=== PATIENT | female | born 1945 | race Caucasian/White ===

== ENCOUNTER 2016-09-28 11:06 | Inpatient (IN) | payer MEDICARE, OTHER ==
[~2016-09-28] VITALS: Ht 162.6 cm; Wt 67.3 kg
[~2016-09-28 11:06] MED LIST: ACID CONTROLLER20 MG PO; AMITIZA24 MCG PO; CLARITIN10 M2 PO; DIAMOX 250 MG250 MG PO; DIGITEK250 MCG PO; DILTIAZEM 24HR120 MG PO; ELIQUIS5 MG PO; IPRAT-ALBUT 0.5-3 ML INH; IRON325 MG PO; KLOR-CON 1010 MEQ PO; LASIX TAB 20 MG20 MG PO; LEVEMIR FL100 UNIT/1 SQ; MIRALAX PACK 171 PKT PO; NEURONTIN 300300 MG PO; NOVOLOG 10100 UNITS2 INJ; NYAMYC60 GM TP; PRAVASTATIN SOD20 MG PO; SOTALOL80 MG PO; SYNTHROID100 MCG PO; ZANTAC300 MG PO; ZYVOX600 MG PO
[2016-09-28 11:58] LABS: HEMOGLOBIN 9.1 gm/dl (12.3-15.3); RED BLOOD COUNT 3.53 M/UL (4.00-5.10); WHITE BLOOD COUNT 14.2 K/UL (4.5-11.0)
[2016-09-28] MEDS ORDERED: HYDROCHLOROTHIA25 MG PO (18:31)
[2016-09-28] MEDS ORDERED: LORTAB 7.5-3251 EACH PO (18:32)
[2016-09-28] MEDS ORDERED: SINGULAIR10 MG PO (18:33)
[2016-09-28] MEDS ORDERED: DULCOLAX STOOL100 MG PO (18:35)
[2016-09-29 04:23] LABS: HEMOGLOBIN 8.5 gm/dl (12.3-15.3); RED BLOOD COUNT 3.42 M/UL (4.00-5.10)
[2016-09-30 04:51] LABS: HEMOGLOBIN 8.4 gm/dl (12.3-15.3); RED BLOOD COUNT 3.37 M/UL (4.00-5.10)
[2016-09-30 04:52] LABS: WHITE BLOOD COUNT 13.2 K/UL (4.5-11.0)
[2016-09-30 05:09] LABS: BUN/CREATININE RATIO 29 (0-10)
[2016-10-01 04:09] LABS: BUN/CREATININE RATIO 23 (0-10)
[2016-10-02 04:00] LABS: HEMOGLOBIN 8.2 gm/dl (12.3-15.3); RED BLOOD COUNT 3.22 M/UL (4.00-5.10)
[2016-10-02 04:03] LABS: WHITE BLOOD COUNT 9.2 K/UL (4.5-11.0)
[2016-10-02 04:17] LABS: BUN/CREATININE RATIO 20 (0-10)
[2016-10-02] MEDS ORDERED: COMBIVENT0.074 GM/I INH (11:48)
[2016-10-02] MEDS ORDERED: HUMIBID LA TAB600 MG PO (11:50)
[2016-10-02] MEDS ORDERED: ROBITUSSIN DM473 ML PO (12:20)
[2016-10-02] MEDS ORDERED: VENTOLIN/PROVE0.5 ML INH (12:20)
[2016-10-02] MEDS ORDERED: ZYVOX 600 MG T600 MG PO (12:22)
[2016-10-02] MEDS ORDERED: IPRAT-ALBUT 0.5-3 ML INH (12:25)
[2016-10-02] MEDS ORDERED: BACTRIM DS TAB1 EACH PO (16:05)
--- NOTE | 2016-10-02 17:26 | NUR ---
REPORT CALLED TO [facility] SATINDER DEVI RN AT [facility] - PT IS ALREADY ESTABLISHED, FAX SENT WITH UPDATED INFORMATION / MEDICATION LIST PRIOR TO DISCHARGE. SLADE MARTINEZ (PT CAREGIVER) CONTACTED PRIOR TO DISCHARGE, DISCHARGE EDUCATION PROVIDED, NOTIFIED THAT EMS WOULD ARRIVE TO TAKE PATIENT HOME SOON POSSIBLE.
[2016-11-08] MEDS ORDERED: PHENAZOPYRIDIN100 MG PO (05:16)
[2016-11-09] MEDS ORDERED: METOPROLOL TART25 MG PO (17:10)
[2016-11-09] MEDS ORDERED: IPRAT-ALBUT 0.5-3 ML INH (17:11)
[2016-11-09] MEDS ORDERED: CARDIZEM CD180 MG PO (17:15)
[2016-11-29] MEDS ORDERED: MORPHINE S100 MG/5 M PO (16:15)
[2016-11-29] MEDS ORDERED: ATIVAN0.5 MG PO (16:16)
== END 2016-10-02 18:00 | disposition home health service (06) | DRG 308 ==
LOC: ER1 11:06 → ZEROF 13:32 → PROG CARE 18:26 → CCU 10-01 14:40
PROVIDERS: Emergency Medicine; Internal Medicine Infectious Disease; Physician Assistant; ADMIT Family Medicine
DX: R00.1 Bradycardia, unspecified (principal); L89.213 Pressure ulcer of right hip, stage 3; J44.1 Chronic obstructive pulmonary disease with (acute) exacerbation; J96.11 Chronic respiratory failure with hypoxia; T17.490A Other foreign object in trachea causing asphyxiation, initial encounter; Z99.11 Dependence on respirator [ventilator] status; J96.12 Chronic respiratory failure with hypercapnia; I47.1 Supraventricular tachycardia; T46.0X5A Adverse effect of cardiac-stimulant glycosides and drugs of similar action, initial encounter; J04.10 Acute tracheitis without obstruction; B95.62 Methicillin resistant Staphylococcus aureus infection as the cause of diseases classified elsewhere; E11.9 Type 2 diabetes mellitus without complications; C50.912 Malignant neoplasm of unspecified site of left female breast; I48.2 Chronic atrial fibrillation; L89.152 Pressure ulcer of sacral region, stage 2; D50.9 Iron deficiency anemia, unspecified; E87.6 Hypokalemia; N32.81 Overactive bladder; R74.8 Abnormal levels of other serum enzymes; Z93.0 Tracheostomy status; Z87.891 Personal history of nicotine dependence; Z85.01 Personal history of malignant neoplasm of esophagus; Z66 Do not resuscitate; Z22.322 Carrier or suspected carrier of Methicillin resistant Staphylococcus aureus; Z79.4 Long term (current) use of insulin; Z79.891 Long term (current) use of opiate analgesic; Z79.899 Other long term (current) drug therapy; Z88.0 Allergy status to penicillin; Z90.12 Acquired absence of left breast and nipple; Z90.710 Acquired absence of both cervix and uterus; Z90.49 Acquired absence of other specified parts of digestive tract; Z98.890 Other specified postprocedural states; Z82.3 Family history of stroke; Z82.49 Family history of ischemic heart disease and other diseases of the circulatory system; Z80.9 Family history of malignant neoplasm, unspecified
CPT/HCPCS: ECHO; 36415; 71010; 80048; 80053; 80162; 80202; 81001; 82550; 82607; 82728; 82746; 82962; 83540; 83550; 83735; 84484; 85025; 85027; 87070; 87077; 87086; 87186; 87205; 93005; 93306; 94640; 94664; 96374; 99285; C1751; J0696; J1162; J1644; J1956; J2020; J2550; J3370; J7050; J7070